=== PATIENT | male | born 1935 | race Caucasian/White ===

== ENCOUNTER → 2016-10-28 | Outpatient (CLI) | payer BC ==
[~2016-10-28] MED LIST: ABL/15 PO; CGN1 PO; CLON1TAB3 PO; DONE1TAB11 PO; FRRS300 PO; PARO1TAB27 PO; [UNRECOGNIZED DRUG - OTHER] IM
--- NOTE | 2016-10-28 21:02 | ECHOCARDIOGRAM REPORT ---
*NOTICE TO RECEIVING CONSTITUTION PARTY AGENCY This information is strictly Confidential and protected under [place] law. [place] law prohibits you from making any further disclosure of this information unless further disclosure is expressly permitted by the written consent of the person to whom it pertains or is authorized by law. A general authorization for the release of medical or other information is not sufficient for this purpose. Hospital accepts no responsibility if the information is made available to any other person, INCLUDING THE PATIENT. Interpretation Summary * Name: BE CORTEZ Study Date: 10/28/2016 12:49 PM * HR: 62 * : 1935 (M/d/yyyy) Gender: Male Height: 75 in * Age: 81 yrs Ethnicity: [place] Weight: 240 lb * Ordering Physician: Doug Raman PA-C * Referring Physician: Doug Raman PA-C * Performed By: Maury Gilmna RCS * * Reason For Study: Lightheadedness, , Mitral Insufficiency * BSA: 2.4 m2 * Normal left ventricular systolic function. * Mild concentric left ventricular hypertrophy. * Class 1 left ventricular diastolic dysfunction. * Mild left and right ventricular dilatation. * Mild left atrial dilatation. * Severe calcific aortic stenosis. * Trace aortic regurgitation. * Trace pulmonic regurgitation. * Trace mitral regurgitation. * -- Conclusions -- * There is severe calcific aortic valve stenosis. Procedure Details * Left Ventricle The left ventricle is mildly dilated. There is mild concentric left ventricular hypertrophy. Ejection Fraction = 55-60%. A full diastolic examination was done with clinical findings of Class I diastolic dysfunction. Left ventricular systolic function is normal. The left ventricular wall motion is normal. * Right Ventricle The right ventricle is normal size. The right ventricular systolic function is mildly reduced. * Atria The left atrium is mildly dilated. Right atrial size is normal. No ASD detected; PFO is not assessed. * Mitral Valve There is mild mitral annular calcification. There is no mitral valve stenosis. There is trace mitral regurgitation. * Tricuspid Valve The tricuspid valve is not well visualized, but is grossly normal. There is no tricuspid stenosis. Significant tricuspid regurgitation is absent. * Aortic Valve On 2 D imaging the aortic valve is calcified and has marked decreased opening consistent with severe stenosis. The velocity across the valve was indequately sampled. There is severe calcific aortic valve stenosis. Trace aortic regurgitation. * Pulmonic Valve The pulmonic valve is not well visualized. The pulmonary valve is inadequately visualized, but the Doppler data is adequate for interpretation. There is no pulmonic valvular stenosis. Trace pulmonic valvular regurgitation. * Great Vessels The aortic root is normal size. * Pericardium/Pleural There is no pericardial effusion. * * MMode 2D Measurements and Calculations * IVSd 1.2 cm * * LVIDd 5.7 cm * LVIDs 4.0 cm * LVPWd 1.2 cm * * IVS/LVPW 0.97 * FS 29.6 % * EDV(Teich) 160.4 ml * ESV(Teich) 70.7 ml * EF(Teich) 55.9 % * * EDV(cubed) 185.7 ml * ESV(cubed) 64.8 ml * EF(cubed) 65.1 % * * LV mass(C)d 285.5 grams * LV mass(C)dI 120.4 grams/m\S\2 * * SV(Teich) 89.7 ml * SI(Teich) 37.8 ml/m\S\2 * SV(cubed) 120.9 ml * SI(cubed) 51.0 ml/m\S\2 * * Ao root diam 3.2 cm * Ao root area 7.8 cm\S\2 * LA dimension 4.1 cm * * LA/Ao 1.3 * LVOT diam 2.0 cm * LVOT area 3.0 cm\S\2 * * EDV(MOD-sp4) 147.0 ml * ESV(MOD-sp4) 67.3 ml * EF(MOD-sp4) 54.2 % * * EDV(MOD-sp2) 200.3 ml * ESV(MOD-sp2) 90.9 ml * EF(MOD-sp2) 54.6 % * * SV(MOD-sp4) 79.7 ml * SI(MOD-sp4) 33.6 ml/m\S\2 * * SV(MOD-sp2) 109.5 ml * SI(MOD-sp2) 46.2 ml/m\S\2 * * * Doppler Measurements and Calculations * MV E max luda 95.3 cm/sec * MV A max luda 113.0 cm/sec * * MV E/A 0.84 * * LV V1 max PG 5.4 mmHg * LV V1 mean PG 2.8 mmHg * * LV V1 max 116.4 cm/sec * LV V1 mean 77.9 cm/sec * LV V1 VTI 31.1 cm * * SV(LVOT) 94.2 ml * SI(LVOT) 39.7 ml/m\S\2 * * * * *
== END | disposition home or self-care (01) ==
LOC: C.CPL 12:01
PROVIDERS: ATTEND Physician Assistant
DX: R42 Dizziness and giddiness (principal); I34.0 Nonrheumatic mitral (valve) insufficiency; I35.0 Nonrheumatic aortic (valve) stenosis

== ENCOUNTER 2021-05-28 06:29 | Inpatient (IN) ==
[2021-05-28] MEDS ORDERED: ONDANSETRON INJ 2 MG/ML 2 ML VIAL IV STA (06:46)
[2021-05-28] MEDS ORDERED: SODIUM CHLORIDE 0.9% 1000ML 1,000 ML IV SCH ×2 (07:00→08:00)
[2021-05-28 07:06] LABS: Eosinophils # (auto) 0.02 K/uL (0-0.5); Eosinophils % (auto) 0.1 %; Hematocrit (blood only) 43.8 % (42-52); Hemoglobin 14.6 g/dL (14.0-18.0); Immature Granulocytes # (auto) 0.02 K/uL (0.00-0.02); Immature Granulocytes % (auto) 0.1 %; Lymphocytes # (auto) 0.36 K/uL (1.2-3.4); Lymphocytes % (auto) 2.1 %; Mean Corpuscular Hemoglobin 29.4 pg (25-34); Mean Corpuscular Hgb Conc 33.3 g/dL (32-36); Mean Corpuscular Volume 88.1 fL (80-100); Mean Platelet Volume 10.9 fL (7.4-10.4); Monocytes # (auto) 0.71 K/uL (0.11-0.59); Monocytes % (auto) 4.2 %; Neutrophils # (auto) 15.86 K/uL (1.4-6.5); Neutrophils % (auto) 93.5 %; Platelet Count 344 K/uL (130-400); RDW Coefficient of Variation 14.7 % (11.5-14.5); RDW Standard Deviation 47.1 fL (36.4-46.3); Red Blood Count 4.97 M/uL (4.7-6.1); White Blood Count 16.97 K/uL (4.8-10.8)
[2021-05-28 07:12] LABS: INR 1.2 (0.9-1.1); Partial Thromboplastin Ratio 1.1; Partial Thromboplastin Time 29.6 Seconds (21.0-31.0); Prothrombin Time 12.3 Seconds (9.0-12.0)
--- NOTE | 2021-05-28 07:17 | Emergency Department Note ---
History of Present Illness General Chief complaint: Vomiting Stated complaint: vomiting, weak Time Seen by Provider: 05/28/21 06:33 History of Present Illness Maximum Pain Intensity: 6 86-year-old male presents to the ED with a chief complaint of weakness, abdominal pain as well as vomiting saliva for the past day. The patient's baseline is rather diminished in general. He is unable to provide any history. History was obtained from his sister. His sister has been helping take care of him. The patient's sister states that he has become increasingly weak over the last few days. He generally needs help getting around at baseline. The sister reported that he had complained of some abdominal pains. When he is asked, he reports a little. The patient did eat and drink fluids yesterday according to the sister but she had to feed him. He does have some baseline tremors and has difficulty feeding himself fluids at baseline. He sister reports that anytime she would try to give him something orally in the last 24 hours, he would just spit it out Home Medications Medication Instructions Recorded Confirmed Type ferrous sulfate 325 mg (65 mg 325 mg PO QAM #0 10/15/08 05/28/21 History iron) tablet (iron) fluphenazine decanoate 25 mg/mL 25 mg IM MONTHLY #0 10/15/08 05/28/21 History injection solution paroxetine HCl 20 mg tablet 20 mg PO QAM #0 10/15/08 05/28/21 History aripiprazole 15 mg tablet (Abilify) 15 mg PO QAM #0 tab 08/29/13 05/28/21 History donepezil 5 mg tablet 5 mg PO HS #0 08/29/13 05/28/21 History atorvastatin 10 mg tablet 10 mg PO BID 01/05/18 05/28/21 History hydrochlorothiazide 12.5 mg capsule 12.5 mg PO QAM 01/05/18 05/28/21 History glycopyrrolate 1 mg tablet 1 mg PO BID 05/28/21 05/28/21 History lisinopril 40 mg tablet 40 mg PO QAM 05/28/21 05/28/21 History mirtazapine 15 mg tablet 7.5 mg PO HS 05/28/21 05/28/21 History sertraline 100 mg tablet 150 mg PO QAM 05/28/21 05/28/21 History valbenazine 40 mg capsule 40 mg PO QAM 05/28/21 05/28/21 History (Ingrezza) Allergies Allergy/AdvReac Type Severity Reaction Status Date / Time No Known Allergies Allergy Unknown NO Verified 05/28/21 07:58 Past Med/Surg History Medical History Colonic mass Colonic mass Colorectal cancer, stage III (~08/29/13) Hearing loss Laceration of scrotum Memory changes Social History Smoking Status: Unknown if ever smoked Preferred Language: Malay Communication Ability: Effective Visual Impairment: No Limitations Hearing Ability: Hard of Hearing Current Living Situation: Spouse Feels Safe at Home: Yes Review of Systems Unobtainable due to cognitive status Physical Exam Vital Signs Vital Signs - 24 hr 05/28/21 06:38 05/28/21 06:47 05/28/21 07:13 Temperature 36.6 C Temperature Source Oral Pulse Rate 92 H 94 H 92 H Pulse Rate from SpO2 Sensor 92 H Pulse Rhythm Regular Regular Pulse Strength Normal Respiratory Rate 20 22 14 Respiratory Effort / Characteristics Non-Labored Respiratory Depth Normal Respiratory Pattern Regular Blood Pressure 99/68 L 106/69 Blood Pressure Mean 78 81 Blood Pressure Position Lying Pulse Oximetry 92 91 92 Oxygen Delivery Method Nasal Cannula Room Air Room Air Oxygen Flow Rate 2 Sepsis Recent Fever Within 48 Hours No Sepsis New/Unexplained Change in Mental Status No Sepsis Action Taken by Nursing No Action Required Oxygen Flow Rate - Titration Pulse Oximetry Post Tiitration 05/28/21 07:35 05/28/21 07:42 05/28/21 08:00 Temperature Temperature Source Pulse Rate 94 H 95 H 93 H Pulse Rate from SpO2 Sensor 95 H 93 H Pulse Rhythm Pulse Strength Respiratory Rate 24 22 23 Respiratory Effort / Characteristics Respiratory Depth Respiratory Pattern Blood Pressure 103/67 Blood Pressure Mean 79 Blood Pressure Position Pulse Oximetry 87 L 93 Oxygen Delivery Method Room Air Nasal Cannula Oxygen Flow Rate 2 Sepsis Recent Fever Within 48 Hours Sepsis New/Unexplained Change in Mental Status Sepsis Action Taken by Nursing Oxygen Flow Rate - Titration 2 Pulse Oximetry Post Tiitration 93 CONSTITUTIONAL/VITAL SIGNS: Reviewed / noted above. GENERAL: Non-toxic in appearance. INTEGUMENTARY: Warm, dry, and [place]. HEAD: Normocephalic. EYES: without scleral icterus or trauma. ENT/OROPHARYNX: clear and dry. RESPIRATORY: Clear to auscultation bilaterally. No increased work of breathing. CARDIOVASCULAR: Regular rate and rhythm. Systolic ejection murmur GI/ABDOMEN: Soft and mildly tender.. No organomegaly or pulsatile mass. EXTREMITIES: Warm and well perfused. BACK: No CVA tenderness. NEUROLOGICAL: Significant global generalized weakness. Tries to talk but is incomprehensible. PSYCHIATRIC: normal affect. MUSCULOSKELETAL: Normally developed with good muscle tone. TRIAGE NURSING DOCUMENTATION REVIEWED. Course Administered Medications Discontinued Medications Sodium Chloride (Nss 1000ml) 1,000 mls @ 999 mls/hr IV .Q1H1M LETHA Stop: 05/28/21 07:48 Last Infusion: 05/28/21 08:06 Dose: 0 mls/hr Documented by: [id number] Infusion: 05/28/21 08:00 Dose: 0 mls/hr Documented by: [id number] Admin: 05/28/21 07:40 Dose: 999 mls/hr Documented by: [id number] Sodium Chloride (Nss 1000ml) 1,000 mls @ 999 mls/hr IV .Q1H1M LETHA Stop: 05/28/21 08:59 Last Infusion: 05/28/21 08:07 Dose: 0 mls/hr Documented by: [id number] Infusion: 05/28/21 08:00 Dose: 0 mls/hr Documented by: [id number] Admin: 05/28/21 07:40 Dose: 999 mls/hr Documented by: [id number] Ondansetron HCl (Ondansetron Inj 2 Mg/Ml 2 Ml Vial) 4 mg IV NOW [facility] Stop: 05/28/21 06:47 Last Admin: 05/28/21 07:45 Dose: 4 mg Documented by: [id number] Medical Decision Making Differential Diagnosis Differential includes acute coronary syndrome, myocardial infarction, CVA, TIA, anemia, infection, pneumonia, UTI, pyelonephritis, poor nutrition, dehydration, electrolyte disturbance,hypoglycemia. Medical Records Attestation: I reviewed the patient's medical records. Home Medications Current Medication List: was personally reviewed by me Laboratory Data Attestation: I reviewed the patient's lab results. Result diagrams: 05/28/21 06:46 05/28/21 06:46 Lab Results 04/08/22 04/08/22 04/08/22 Range/Units 06:46 06:46 06:46 WBC 16.97 H (4.8-10.8) K/uL RBC 4.97 (4.7-6.1) M/uL Hgb 14.6 (14.0-18.0) g/dL Hct 43.8 (42-52) % MCV 88.1 (80-100) fL MCH 29.4 (25-34) pg MCHC 33.3 (32-36) g/dL RDW Std Deviation 47.1 H (36.4-46.3) fL RDW Coeff of Rose 14.7 H (11.5-14.5) % Plt Count 344 (130-400) K/uL MPV 10.9 H (7.4-10.4) fL Immature Gran % (Auto) 0.1 % Neut % (Auto) 93.5 % Lymph % (Auto) 2.1 % [place] % (Auto) 4.2 % Eos % (Auto) 0.1 % Baso % (Auto) 0.0 % Neut # (Auto) 15.86 H (1.4-6.5) K/uL Lymph # (Auto) 0.36 L (1.2-3.4) K/uL [place] # (Auto) 0.71 H (0.11-0.59) K/uL Eos # (Auto) 0.02 (0-0.5) K/uL Baso # (Auto) 0.00 (0-0.2) K/uL Immature Gran # (Auto) 0.02 (0.00-0.02) K/uL PT (9.0-12.0) Seconds INR (0.9-1.1) APTT (21.0-31.0) Seconds PTT Ratio Sodium 140 (136-145) mmol/L Potassium 4.5 (3.5-5.1) mmol/L Chloride 105 (98-107) mmol/L Carbon Dioxide 20 L (21-32) mmol/L Anion Gap 15 H (3-11) BUN 40 H (6-23) mg/dl Creatinine 1.75 H (0.6-1.4) mg/dl Est Cr Clr Drug Dosing Not Reportable Est GFR ( Amer) 40.5 ml/min Est GFR (Non-Af Amer) 35.0 ml/min BUN/Creatinine Ratio 22.9 H (10-20) Glucose 163 H (70-99(Fasting)) mg/dl Lactate (0.4-2.0) mmol/L Calcium 9.1 (8.5-10.1) mg/dl Magnesium 2.2 (1.7-2.4) mg/dl Total Bilirubin 1.0 (0.2-1.0) mg/dl AST 36 (13-39) U/L ALT 14 (7-52) U/L Alkaline Phosphatase 75 (34-104) U/L Troponin I 3.54 H* (0-0.04) ng/ml Total Protein 6.8 (6.0-8.3) gm/dl Albumin 4.0 (3.4-5.0) gm/dl Globulin 2.8 (2.5-4.0) gm/dl Albumin/Globulin Ratio 1.4 (0.9-2) Procalcitonin Cancelled SARS-CoV-2 (PCR) (Negative) Influenza Type A (PCR) (Neg) Influenza Type B (PCR) (Neg) RSV (RT-PCR) (Neg) 05/28/21 05/28/21 05/28/21 Range/Units 06:46 06:46 07:44 WBC (4.8-10.8) K/uL RBC (4.7-6.1) M/uL Hgb (14.0-18.0) g/dL Hct (42-52) % MCV (80-100) fL MCH (25-34) pg MCHC (32-36) g/dL RDW Std Deviation (36.4-46.3) fL RDW Coeff of Rose (11.5-14.5) % Plt Count (130-400) K/uL MPV (7.4-10.4) fL Immature Gran % (Auto) % Neut % (Auto) % Lymph % (Auto) % [place] % (Auto) % Eos % (Auto) % Baso % (Auto) % Neut # (Auto) (1.4-6.5) K/uL Lymph # (Auto) (1.2-3.4) K/uL [place] # (Auto) (0.11-0.59) K/uL Eos # (Auto) (0-0.5) K/uL Baso # (Auto) (0-0.2) K/uL Immature Gran # (Auto) (0.00-0.02) K/uL PT 12.3 H (9.0-12.0) Seconds INR 1.2 H (0.9-1.1) APTT 29.6 (21.0-31.0) Seconds PTT Ratio 1.1 Sodium (136-145) mmol/L Potassium (3.5-5.1) mmol/L Chloride (98-107) mmol/L Carbon Dioxide (21-32) mmol/L Anion Gap (3-11) BUN (6-23) mg/dl Creatinine (0.6-1.4) mg/dl Est Cr Clr Drug Dosing Est GFR ( Amer) ml/min Est GFR (Non-Af Amer) ml/min BUN/Creatinine Ratio (10-20) Glucose (70-99(Fasting)) mg/dl Lactate 3.4 H* (0.4-2.0) mmol/L Calcium (8.5-10.1) mg/dl Magnesium (1.7-2.4) mg/dl Total Bilirubin (0.2-1.0) mg/dl AST (13-39) U/L ALT (7-52) U/L Alkaline Phosphatase (34-104) U/L Troponin I (0-0.04) ng/ml Total Protein (6.0-8.3) gm/dl Albumin (3.4-5.0) gm/dl Globulin (2.5-4.0) gm/dl Albumin/Globulin Ratio (0.9-2) Procalcitonin SARS-CoV-2 (PCR) NEGATIVE (Negative) Influenza Type A (PCR) Negative (Neg) Influenza Type B (PCR) Negative (Neg) RSV (RT-PCR) Negative (Neg) 05/28/21 Range/Units 08:33 WBC (4.8-10.8) K/uL RBC (4.7-6.1) M/uL Hgb (14.0-18.0) g/dL Hct (42-52) % MCV (80-100) fL MCH (25-34) pg MCHC (32-36) g/dL RDW Std Deviation (36.4-46.3) fL RDW Coeff of Rose (11.5-14.5) % Plt Count (130-400) K/uL MPV (7.4-10.4) fL Immature Gran % (Auto) % Neut % (Auto) % Lymph % (Auto) % [place] % (Auto) % Eos % (Auto) % Baso % (Auto) % Neut # (Auto) (1.4-6.5) K/uL Lymph # (Auto) (1.2-3.4) K/uL [place] # (Auto) (0.11-0.59) K/uL Eos # (Auto) (0-0.5) K/uL Baso # (Auto) (0-0.2) K/uL Immature Gran # (Auto) (0.00-0.02) K/uL PT (9.0-12.0) Seconds INR (0.9-1.1) APTT (21.0-31.0) Seconds PTT Ratio Sodium (136-145) mmol/L Potassium (3.5-5.1) mmol/L Chloride (98-107) mmol/L Carbon Dioxide (21-32) mmol/L Anion Gap (3-11) BUN (6-23) mg/dl Creatinine (0.6-1.4) mg/dl Est Cr Clr Drug Dosing Est GFR ( Amer) ml/min Est GFR (Non-Af Amer) ml/min BUN/Creatinine Ratio (10-20) Glucose (70-99(Fasting)) mg/dl Lactate 2.6 H* (0.4-2.0) mmol/L Calcium (8.5-10.1) mg/dl Magnesium (1.7-2.4) mg/dl Total Bilirubin (0.2-1.0) mg/dl AST (13-39) U/L ALT (7-52) U/L Alkaline Phosphatase (34-104) U/L Troponin I (0-0.04) ng/ml Total Protein (6.0-8.3) gm/dl Albumin (3.4-5.0) gm/dl Globulin (2.5-4.0) gm/dl Albumin/Globulin Ratio (0.9-2) Procalcitonin SARS-CoV-2 (PCR) (Negative) Influenza Type A (PCR) (Neg) Influenza Type B (PCR) (Neg) RSV (RT-PCR) (Neg) Imaging Data Radiologist's Impression: Chest X-Ray 05/28/21 06:47 XR chest 1V portable CLINICAL HISTORY: Sepsis. COMPARISON STUDY: Chest CT August 29, 2013. Chest radiograph September 10, 2013. FINDINGS: There is no pneumothorax. Small bilateral pleural effusions are noted. Moderate interstitial pulmonary edema is noted. Superimposed airspace opacities favor alveolar edema. Cardiac size is at the upper limits of normal. IMPRESSION: Moderate pulmonary edema with small bilateral pleural effusions. Radiographic follow-up is recommended to ensure resolution. ACT 112: Negative or not required by law. Electronically signed by: Hardik Tran M.D. 05/28/2021 7:45 AM Abdomen/Pelvis CT 05/28/21 06:49 CT abd pelvis wo con CLINICAL HISTORY: Abdominal pain. Difficulty swallowing. Constipation. Reported vomiting. Additional reported history of colorectal carcinoma COMPARISON STUDY: 10/03/2014 CT DOSE: 562.16 mGy.cm TECHNIQUE: Standard CT of the Abdomen and Pelvis was performed without IV cont rast. The patient did not receive oral contrast. A dose lowering technique was utilized adhering to the principles of ALARA. FINDINGS: Lung base: There is breathing motion artifact. Comments interstitial markings is also seen. There are moderate-sized bilateral pleural effusions, right greater than left with compressive atelectasis at both lung bases. The heart size is mildly enlarged. There is extensive coronary artery calcification and valvular calcification. The presence of valve replacements cannot be excluded. There is a small pericardial effusion. Abdominal cavity: There is no evidence for abdominal mass, adenopathy or ascites. Liver: The liver is homogeneous in attenuation on these limited noncontrast images.. Spleen: The spleen is homogeneous in attenuation on these limited noncontrast images. Pancreas: The pancreas is homogeneous in attenuation on these limited noncontrast images. Gall Bladder: The gallbladder is again distended with cholelithiasis. There is no CT evidence for acute cholecystitis. Adrenal glands: The adrenal glands are normal in size and attenuation on these limited noncontrast images. Kidneys: The kidneys are homogeneous in attenuation on these limited noncontrast images. There is no evidence for gross renal mass, calyceal calculus or hydronephrosis bilaterally. There is a 2 mm right renal parenchymal calcification. Bowel: The patient is again status post right hemicolectomy with patent a nastomosis. There is mild to moderate fecal impaction of the rectosigmoid colon. There is no obstruction of the more proximal colon with only mild fecal stasis present. The small bowel loops are normally placed within the abdomen and pelvis without evidence for dilatation or obstruction. There is evidence for sigmoid diverticulosis without evidence for diverticulitis. There are no inflammatory changes present. There is no evidence for free air. Bladder: There is no evidence for focal bladder wall thickening, calculus or diverticulum. There is mild diffuse thickening of the bladder wall which can be seen with chronic bladder outlet obstruction. : There is no evidence for pelvic mass or adenopathy. The prostate is mildly enlarged. Vasculature: There is no evidence for focal aneurysmal dilatation of the abdominal aorta. There is extensive atherosclerotic calcification. 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 Osseous structures: There is no acute osseous pathology. Mild degenerative changes are seen within the spine. IMPRESSION: 1. Mild to moderate fecal impaction without evidence for obstruction. There is only mild associated fecal stasis more proximally within the colon. 2. There is again cholelithiasis with no CT evidence for acute cholecystitis. 3. Moderate sized bilateral pleural effusions, right greater than left with compressive atelectasis at the right lung base. 4. Cardiomegaly with extensive coronary artery calcification and valvular calcification. 5. Small pericardial effusion. 6. Additional nonacute findings are delineated above. ACT 112: Negative or not required by law. Electronically signed by: Robin Tijerina M.D. 05/28/2021 7:54 AM ECG Data Attestation: I personally reviewed and interpreted this ECG as follows: Additional Comments: Twelve-lead EKG: Per my interpretation shows a sinus rhythm at a rate of 92 with a first-degree AV block. Right bundle branch block. Left anterior fascicular block. No ST elevation. No PVCs. MDM Narrative Patient presents with generalized weakness, vomiting and some abdominal pain as detailed above. Poor historian. Significant generalized weakness on exam. Mouth appears dry. Blood pressure 99/68. Heart rate is 94. Afebrile. Saturations 91% on room air. The patient's EKG shows a sinus rhythm at a rate of 92. White blood cell count is elevated at 16.9. BUN is 40 and creatinine is 1.75. Lactic acid is 3.4. Glucose is 163. Troponin is elevated at 3. 5. Chest x-ray reveals findings suggesting pulmonary edema. CT scan of the abdomen pelvis reveals moderate fecal impaction otherwise moderate bilateral pleural effusions. The patient did require a small amount of oxygen, 2 L for desaturations into the 88 to 89% on room air. He was initially given some flu ids. He was ordered 2 L but only received 100 cc because of the chest x-ray showing pulmonary edema. The patient was not given any Lasix for this because of the blood pressure being low. He was given some IV Zofran for his symptoms. I did speak with the hospitalist, who will see the patient for further inpatient evaluation and care. Because of the patient's vomiting, he was not given aspirin p.o. as he seems to be too weak to swallow. He was given rectal aspirin Impression & Plan Generalized weakness, Elevated troponin, Nausea & vomiting, CHF (congestive heart failure), Acute renal injury, Acute hyperglycemia Discharge Plan Visit Data Chief Complaint: Vomiting Stated Complaint: vomiting, weak ED Provider: Elbert Marcelino Discharge Problem: Generalized weakness, Elevated troponin, Nausea & vomiting, CHF (congestive heart failure), Acute renal injury, Acute hyperglycemia Patient Disposition: Being Evaluated by Hospitalist Forms Stand Alone Forms: My [facility] Prescriptions Prescriptions: No Action fluphenazine decanoate 25 mg/mL Solution 25 mg IM MONTHLY Qty: 0 RF: 0 paroxetine HCl 20 mg Tablet 20 mg PO QAM Qty: 0 RF: 0 ferrous sulfate [iron] 325 mg (65 mg iron) Tablet 325 mg PO QAM Qty: 0 RF: 0 donepezil 5 mg Tablet 5 mg PO HS Qty: 0 RF: 0 aripiprazole [Abilify] 15 mg Tablet 15 mg PO QAM Qty: 0 RF: 0 atorvastatin 10 mg tablet 10 mg PO BID RF: 0 hydrochlorothiazide 12.5 mg capsule 12.5 mg PO QAM RF: 0 glycopyrrolate 1 mg tablet 1 mg PO BID RF: 0 sertraline 100 mg tablet 150 mg PO QAM RF: 0 mirtazapine 15 mg tablet 7.5 mg PO HS RF: 0 lisinopril 40 mg tablet 40 mg PO QAM RF: 0 Ingrezza 40 mg capsule 40 mg PO QAM RF: 0 Referrals Referrals: Ivanna Sam DO [Primary Care Provider] -
[2021-05-28 07:22] LABS: Alanine Aminotransferase 14 U/L (7-52); Albumin Globulin Ratio 1.4 (0.9-2); Alkaline Phosphatase 75 U/L (34-104); Anion Gap 15 (3-11); Aspartate Aminotransferase 36 U/L (13-39); BUN Creatinine Ratio 22.9 (10-20); Blood Urea Nitrogen 40 mg/dl (6-23); Calcium 9.1 mg/dl (8.5-10.1); Carbon Dioxide 20 mmol/L (21-32); Chloride 105 mmol/L (98-107); Est GFR (African American) 40.5 ml/min; Globulin 2.8 gm/dl (2.5-4.0); Glucose 163 mg/dl (70-99(Fasting)); Magnesium 2.2 mg/dl (1.7-2.4); Potassium 4.5 mmol/L (3.5-5.1); Sodium 140 mmol/L (136-145); Total Protein 6.8 gm/dl (6.0-8.3)
[2021-05-28 07:29] LABS: Troponin I 3.54 ng/ml (0-0.04)
--- NOTE | 2021-05-28 07:46 | XRay Report ---
XR chest 1V portable CLINICAL HISTORY: Sepsis. COMPARISON STUDY: Chest CT August 29, 2013. Chest radiograph September 10, 2013. FINDINGS: There is no pneumothorax. Small bilateral pleural effusions are noted. Moderate interstitia l pulmonary edema is noted. Superimposed airspace opacities favor alveolar edema. Cardiac size is at the upper limits of normal. IMPRESSION: Moderate pulmonary edema with small bilateral pleural effusions. Radiographic follow-up is recommended to ensure resolution. ACT 112: Negative or not required by law. Electronically signed by: Hardik Tran M.D. 05/28/2021 7:45 AM
--- NOTE | 2021-05-28 07:55 | CT Scan Report ---
CT abd pelvis wo con CLINICAL HISTORY: Abdominal pain. Difficulty swallowing. Constipation. Reported vomiting. Additional reported history of colorectal carcinoma COMPARISON STUDY: 10/03/2014 CT DOSE: 562.16 mGy.cm TECHNIQUE: Standard CT of the Abdomen and Pelvis was performed without IV contrast. The patient did not receive oral contrast. A dose lowering technique was utilized adhering to the principles of COLTON Batista FINDINGS: Lung base: There is breathing motion artifact. Comments interstitial markings is also seen. There are moderate-sized bilateral pleural effusions, right greater than left with compressive atelectasis at both lung bases. The heart size is mildly enlarged. There is extensive coronary artery calcification and valvular calcification. The presence of valve replacements cannot be excluded. There is a small p ericardial effusion. Abdominal cavity: There is no evidence for abdominal mass, adenopathy or ascites. Liver: The liver is homogeneous in attenuation on these limited noncontrast images.. Spleen: The spleen is homogeneous in attenuation on these limited noncontrast images. Pancreas: The pancreas is homogeneous in attenuation on these limited noncontrast images. Gall Bladder: The gallbladder is again distended with cholelithiasis. There is no CT evidence for acu te cholecystitis. Adrenal glands: The adrenal glands are normal in size and attenuation on these limited noncontrast im ages. Kidneys: The kidneys are homogeneous in attenuation on these limited noncontrast images. There is no evidence for gross renal mass, calyceal calculus or hydronephrosis bilaterally. There is a 2 mm right renal parenchymal calcification. Bowel: The patient is again status post right hemicolectomy with patent anastomosis. There is mild to moderate fecal impaction of the rectosigmoid colon. There is no obstruction of the more proximal col on with only mild fecal stasis present. The small bowel loops are normally placed within the abdomen and pelvis without evidence for dilatation or obstruction. There is evidence for sigmoid diverticulos is without evidence for diverticulitis. There are no inflammatory changes present. There is no eviden ce for free air. Bladder: There is no evidence for focal bladder wall thickening, calculus or diverticulum. There is m ild diffuse thickening of the bladder wall which can be seen with chronic bladder outlet obstruction. : There is no evidence for pelvic mass or adenopathy. The prostate is mildly enlarged. Vasculature: There is no evidence for focal aneurysmal dilatation of the abdominal aorta. There is ex tensive atherosclerotic calcification. There is particularly seen involving the left femoral artery w hich is almost completely occluded. Osseous structures: There is no acute osseous pathology. Mild degenerative changes are seen within th e spine. IMPRESSION: 1. Mild to moderate fecal impaction without evidence for obstruction. There is only mild associated f ecal stasis more proximally within the colon. 2. There is again cholelithiasis with no CT evidence for acute cholecystitis. 3. Moderate sized bilateral pleural effusions, right greater than left with compressive atelectasis a t the right lung base. 4. Cardiomegaly with extensive coronary artery calcification and valvular calcification. 5. Small pericardial effusion. 6. Additional nonacute findings are delineated above. ACT 112: Negative or not required by law. Electronically signed by: Robin Tijerina M.D. 05/28/2021 7:54 AM
[2021-05-28 08:16] LABS: Appearance Urine Clear (Clear); Bilirubin Urine Negative (Negative); Blood Urine Negative (Negative); Color Urine Dark Yellow; Glucose Urine UA Negative (Negative); Ketones Urine Trace (Negative); Leukocyte Esterase Urine 1+ (Negative); Nitrite Urine Positive (Negative); Protein Urine Negative (Negative); RBC Urine Automated 0-4 /hpf (0-4); Urobilinogen Urine Negative (Negative)
[2021-05-28 08:42] LABS: Influenza A virus by PCR Negative (Neg); Influenza B virus by PCR Negative (Neg); RSV by PCR Negative (Neg); SARS CoV2 RNA(COVID-19) InHosp NEGATIVE (Negative)
[2021-05-28] MEDS ORDERED: ASPIRIN 300 MG SUPP PR ONE (09:12)
[2021-05-28 09:21] LABS: Bacteria Urine Automated 1+ (Negative)
[2021-05-28] MEDS: SODIUM CHLORIDE 0.9% 1000ML 1,000 ML IV SCH ×2 (09:30→23:06)
[2021-05-28] MEDS ORDERED: cefTRIAXone SODIUM 1,000 MG/50 ML BAG IV STA (09:34)
--- NOTE | 2021-05-28 10:35 | History & Physical Report ---
Date of Service May 28, 2021 Assessment & Plan (1) Severe sepsis: (2) UTI (urinary tract infection): (3) Acute kidney injury superimposed on CKD: (4) Elevated troponin: (5) Generalized weakness: (6) Fecal impaction: (7) Nausea & vomiting: (8) NSTEMI (non-ST elevated myocardial infarction): Plan: This is a 86-year-old elderly male who has significant past medical history of T2DM diet-controlled, schizophrenia, HTN, HLD, history of colon cancer status post right hemicolectomy who presents to ED secondary to abdominal pain and nausea and vomiting x1 day. Patient meets severe sepsis criteria per current CMS guidelines secondary to leukocytosis, tachycardia, lactic acidosis and evidence of organ dysfunction Urine and blood cultures obtained IV Rocephin administered IV fluid was initiated; however not bolus secondary to hypoxia and evidence of pulmonary edema/moderate bilateral pleural effusions Source: Urine Severe sepsis UTI Generalized weakness Admit to PCU Broad-spectrum antibiotics with IV Zosyn Await urine and blood cultures MRSA screen Trend lactic acid, continue IV fluid, adjust as necessary N.p.o. for now until patient more alert and awake Mouth care holding all medications due to inability to take po NSTEMI Elevated troponin, BNP Patient denies chest pain, EKG with anterior T wave inversions, no comparisons Admitting Trop 3.54 with a BNP of greater than 4700 Obtain echocardiogram Discussed with cardiology, likely in setting of sepsis, likely not acute ACS Continue to trend troponin, will hold on IV heparin for now Acute on chronic CKD stage III Baseline creatinine 1.3, BUN/creatinine 40 and 1.75 Continue hydration, avoid nephrotoxic agents Fecal impaction Start with biscodyl suppository T2DM, diet controlled unknown a1c novolog per protocol HTN hold lisinopril, HCTZ Schizophrenia Hold Abilify, glycopyrrolate, mirtazapine, paroxetine, sertraline and Ingrezza Resume if able Dementia On Aricept as outpatient DVT prophylaxis SQ Heparin Dispo: PCU, discussion had with sister at bedside regarding critical nature of patient and possible poor prognosis, she wishes for hospice to be involved and to take him home if symptoms do not improve within 2448 hrs. DNR/DNI PCP: Ivanna Sam Pt was seen and examined in collaboration with Dr. Allen, please see addendum History of Present Illness Chief Complaint: Abd pain, N/V. Primary Care Provider: Ivanna Sam DO This is a 86-year-old elderly male who has significant past medical history of T2DM diet-controlled, schizophrenia, HTN, HLD, history of colon cancer status post right hemicolectomy who presents to ED secondary to abdominal pain and nausea and vomiting x1 day. His sister is at bedside. He is a very poor historian. Sister does not provide significant history as well. Apparently patient's brother approximately 2 weeks ago and according to sister he has been becoming increasingly weak since. Typically he lives at home alone, but sister has been staying with him. He is usually ambulatory with a walker and otherwise pretty active. Over the past 2 days he has become increasingly weak, decreased appetite, complaining of lower abdominal discomfort nausea and spitting up clear mucus according to sister. He denies any fever, chills, sweats, lightheadedness, dizziness, chest pain, shortness of breath, cough, hematemesis, hemoptysis, melena or hematochezia. According to sister he has had difficulty moving bowels the last 2 days. In ED patient met sepsis criteria secondary to leukocytosis, tachycardia, lactic acidosis and evidence of UTI. He also had mild SAKSHI with creatinine 1.75 and elevated troponin at 3.54. CT abdomen pelvis revealed mild to moderate fecal impaction without evidence of obstruction. Also revealed moderate sized bilateral pleural effusions right greater than left with compressive atelectasis at right lung base. Small pericardial effusion was noted. Chest x-ray revealed moderate pulmonary edema. In ED he was started on gentle IV fluid and he also received 300 mg aspirin per rectum. Allergies Allergy/AdvReac Type Severity Reaction Status Date / Time No Known Allergies Allergy Unknown NO Verified 05/28/21 07:58 Home Medications Medication Instructions Recorded Confirmed Type ferrous sulfate 325 mg (65 mg 325 mg PO QAM #0 10/15/08 05/28/21 History iron) tablet (iron) fluphenazine decanoate 25 mg/mL 25 mg IM MONTHLY #0 10/15/08 05/28/21 History injection solution paroxetine HCl 20 mg tablet 20 mg PO QAM #0 10/15/08 05/28/21 History aripiprazole 15 mg tablet (Abilify) 15 mg PO QAM #0 tab 08/29/13 05/28/21 History donepezil 5 mg tablet 5 mg PO HS #0 08/29/13 05/28/21 History atorvastatin 10 mg tablet 10 mg PO BID 01/05/18 05/28/21 History hydrochlorothiazide 12.5 mg capsule 12.5 mg PO QAM 01/05/18 05/28/21 History glycopyrrolate 1 mg tablet 1 mg PO BID 05/28/21 05/28/21 History lisinopril 40 mg tablet 40 mg PO QAM 05/28/21 05/28/21 History mirtazapine 15 mg tablet 7.5 mg PO HS 05/28/21 05/28/21 History sertraline 100 mg tablet 150 mg PO QAM 05/28/21 05/28/21 History valbenazine 40 mg capsule 40 mg PO QAM 05/28/21 05/28/21 History (Ingrezza) Past Med/Surg History Medical History Acute kidney injury superimposed on CKD Colonic mass Colonic mass Colorectal cancer, stage III (~08/29/13) Hearing loss HLD (hyperlipidemia) HTN (hypertension) Laceration of scrotum Memory changes Schizophrenia T2DM (type 2 diabetes mellitus) Surgical History History of hemicolectomy Family History Mother , 89 CHF (congestive heart failure) Social History Smoking Status: Never smoker Second Hand Exposure: No; Do You Dip or Chew Tobacco: No; Tobacco Cessation Education Requested by Patient: No Hx Alcohol Use: No Hx Substance Use: No Preferred Language: Trinidadian Communication Ability: Impaired Communication Ability Comment: hearing/dementia Visual Impairment: No Limitations Hearing Ability: Hard of Hearing Pulling Unit Floorhand Required: No Beliefs That Will Affect Care: None marital status: / Current Living Situation: Family Current Living Situation Comment: Alone with sisters help Other Information That Helps Us Care for You: No Feels Safe at Home: Yes Safety Concerns: Feels Safe At This Time Assistive Devices: Walker and Wheelchair Review of Systems Review of Systems: All systems reviewed & are unremarkable except as noted in HPI & below Physical Exam Physical Exam: Constitutional: Tall, cachectic, elderly, male, critically ill in appearance vitals as above, NAD, sitting up in bed, answers questions, but difficult to understand Head: Normocephalic, Atraumatic Eyes: PERRL, conjunctivae normal, anicteric sclerae ENMT: external ear and nose normal, oropharynx normal, dry mucous membranes Neck: trachea midline, no thyromegaly normal visual inspection Respiratory: normal respiratory effort, lungs clear to auscultation, no wheeze, rales, rhonchi. Normal insp/exp effort, no accessory muscle use Cardiovascular: RRR, harsh 3/6 NEO noted RUSB, no edema Vessels: no JVD or carotid bruit Chest: normal inspection of chest Abdomen: normal bowel sounds, soft, nontender, no hepatosplenomegaly Musculoskeletal: no cyanosis or clubbing, extremities motor strength 5/5 Skin: no rashes, warm and dry mild turgor Neurologic: PERRL, EOMI, accommodation nl, no face palsy, no dysarthria CN's II-XI intact bilaterally and moves all extremities Psychiatric: A+Ox3 basics only, euthymic affect Lymphatic: no cervical or axillary lymphadenopathy : jn urine Results & Data Results & Data ([facility]) Vital Signs (Past 12 Hours) Vital Signs Temp Pulse Resp BP Pulse Ox 05/28/21 10:00 95 H 24 104/69 92 05/28/21 09:30 95 H 20 95/65 L 93 05/28/21 09:00 92 H 21 90/65 L 93 05/28/21 08:30 93 H 20 99/63 L 92 05/28/21 08:00 93 H 23 93 05/28/21 07:42 95 H 22 103/67 87 L 05/28/21 07:35 94 H 24 05/28/21 07:13 92 H 14 106/69 92 05/28/21 06:47 94 H 22 91 05/28/21 06:38 36.6 C 92 H 20 99/68 L 92 Diagnostic Findings Chest X-Ray 05/28/21 06:47 XR chest 1V portable CLINICAL HISTORY: Sepsis. COMPARISON STUDY: Chest CT August 29, 2013. Chest radiograph September 10, 2013. FINDINGS: There is no pneumothorax. Small bilateral pleural effusions are noted. Moderate interstitial pulmonary edema is noted. Superimposed airspace opacities favor alveolar edema. Cardiac size is at the upper limits of normal. IMPRESSION: Moderate pulmonary edema with small bilateral pleural effusions. Radiographic follow-up is recommended to ensure resolution. ACT 112: Negative or not required by law. Electronically signed by: Hardik Tran M.D. 05/28/2021 7:45 AM Abdomen/Pelvis CT 05/28/21 06:49 CT abd pelvis wo con CLINICAL HISTORY: Abdominal pain. Difficulty swallowing. Constipation. Reported vomiting. Additional reported history of colorectal carcinoma COMPARISON STUDY: 10/03/2014 CT DOSE: 562.16 mGy.cm TECHNIQUE: Standard CT of the Abdomen and Pelvis was performed without IV contrast. The patient did not receive oral contrast. A dose lowering technique was utilized adhering to the principles of ALARA. FINDINGS: Lung base: There is breathing motion artifact. Comments interstitial markings is also seen. There are moderate-sized bilateral pleural effusions, right greater than left with compressive atelectasis at both lung bases. The heart size is mildly enlarged. There is extensive coronary artery calcification and valvular calcification. The presence of valve replacements cannot be excluded. There is a small pericardial effusion. Abdominal cavity: There is no evidence for abdominal mass, adenopathy or ascites. Liver: The liver is homogeneous in attenuation on these limited noncontrast images.. Spleen: The spleen is homogeneous in attenuation on these limited noncontrast images. Pancreas: The pancreas is homogeneous in attenuation on these limited noncontrast images. Gall Bladder: The gallbladder is again distended with cholelithiasis. There is no CT evidence for acute cholecystitis. Adrenal glands: The adrenal glands are normal in size and attenuation on these limited noncontrast images. Kidneys: The kidneys are homogeneous in attenuation on these limited noncontrast images. There is no evidence for gross renal mass, calyceal calculus or hydronephrosis bilaterally. There is a 2 mm right renal parenchymal calcification. Bowel: The patient is again status post right hemicolectomy with patent anastomosis. There is mild to moderate fecal impaction of the rectosigmoid colon. There is no obstruction of the more proximal colon with only mild fecal stasis present. The small bowel loops are normally placed within the abdomen and pelvis without evidence for dilatation or obstruction. There is evidence for sigmoid diverticulosis without evidence for diverticulitis. There are no inflam matory changes present. There is no evidence for free air. Bladder: There is no evidence for focal bladder wall thickening, calculus or diverticulum. There is mild diffuse thickening of the bladder wall which can be seen with chronic bladder outlet obstruction. : There is no evidence for pelvic mass or adenopathy. The prostate is mildly enlarged. Vasculature: There is no evidence for focal aneurysmal dilatation of the abdominal aorta. There is extensive atherosclerotic calcification. 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 Osseous structures: There is no acute osseous pathology. Mild degenerative changes are seen within the spine. IMPRESSION: 1. Mild to moderate fecal impaction without evidence for obstruction. There is only mild associated fecal stasis more proximally within the colon. 2. There is again cholelithiasis with no CT evidence for acute cholecystitis. 3. Moderate sized bilateral pleural effusions, right greater than left with compressive atelectasis at the right lung base. 4. Cardiomegaly with extensive coronary artery calcification and valvular calcification. 5. Small pericardial effusion. 6. Additional nonacute findings are delineated above. ACT 112: Negative or not required by law. Electronically signed by: Robin Tijerina M.D. 05/28/2021 7:54 AM Medications Administered Current Inpatient Medications Sodium Chloride (Nss 1000ml) 1,000 mls @ 50 mls/hr IV .Q20H LETHA Stop: 05/30/21 01:14 Last Admin: 05/28/21 09:30 Dose: 50 mls/hr Documented by: ECG Rate (beats per minute): 92 Rhythm: normal sinus Findings: + 1st degree AV block, + RBBB and + prolonged QT COVID-19 Results Results COVID-19 Adm Lab Results: RBC 4.97 M/uL (4.7-6.1) 05/28/21 WBC 16.97 K/uL (4.8-10.8) H 05/28/21 Hgb 14.6 g/dL (14.0-18.0) 05/28/21 Hct 43.8 % (42-52) 05/28/21 Plt Count 344 K/uL (130-400) 05/28/21 Neutrophils (%) (Auto) 93.5 % 05/28/21 Lymphocytes (%) (Auto) 2.1 % 05/28/21 Monocytes # (Auto) 0.71 K/uL (0.11-0.59) H 05/28/21 Eosinophils # (Auto) 0.02 K/uL (0-0.5) 05/28/21 Immature Granulocyte % (Auto) 0.1 % 05/28/21 Neutrophils # (Auto) 15.86 K/uL (1.4-6.5) H 05/28/21 Lymphocytes # (Auto) 0.36 K/uL (1.2-3.4) L 05/28/21 Monocytes # (Auto) 0.71 K/uL (0.11-0.59) H 05/28/21 Eosinophils # (Auto) 0.02 K/uL (0-0.5) 05/28/21 Basophils # (Auto) 0.00 K/uL (0-0.2) 05/28/21 Immature Granulocyte # (Auto) 0.02 K/uL (0.00-0.02) 05/28/21 Na 140 mmol/L (136-145) 05/28/21 K 4.5 mmol/L (3.5-5.1) 05/28/21 Cl 105 mmol/L (98-107) 05/28/21 CO2 20 mmol/L (21-32) L 05/28/21 Anion Gap 15 (3-11) H 05/28/21 BUN 40 mg/dl (6-23) H 05/28/21 Creatinine 1.75 mg/dl (0.6-1.4) H 05/28/21 BUN/Creatinine Ratio 22.9 (10-20) H 05/28/21 Glucose Level 163 mg/dl (70-99(Fasting)) H 05/28/21 Ca 9.1 mg/dl (8.5-10.1) 05/28/21 Total Bilirubin 1.0 mg/dl (0.2-1.0) 05/28/21 AST/SGOT 36 U/L (13-39) 05/28/21 ALT/SGPT 14 U/L (7-52) 05/28/21 Alkaline Phosphatase 75 U/L (34-104) 05/28/21 Total Protein 6.8 gm/dl (6.0-8.3) 05/28/21 Albumin 4.0 gm/dl (3.4-5.0) 05/28/21 Globulin 2.8 gm/dl (2.5-4.0) 05/28/21 Albumin/Globulin Ratio 1.4 (0.9-2) 05/28/21 Troponin I 12.17 ng/ml (0-0.04) H* 05/28/21 Procalcitonin < 0.05 ng/ml (0-0.5) 05/28/21 PTT 29.6 Seconds (21.0-31.0) 05/28/21 INR 1.2 (0.9-1.1) H 05/28/21 COVID-19 PCR NEGATIVE (Negative) 05/28/21 Influenza Virus Type A (PCR) Negative (Neg) 05/28/21 Influenza Virus Type B (PCR) Negative (Neg) 05/28/21 Chest X-Ray 05/28/21 Code Status & VTE Plan Code Status DNR/DNI VTE Prophylaxis Plan VTE Prophylaxis will be ordered: Yes Supervising Physician Co-Signing Physician Notes 86-year-old elderly male w/ PMH of T2DM diet-controlled, schizophrenia, HTN, HLD, history of colon cancer status post right hemicolectomy who presents to ED 05/28 secondary to abdominal pain and nausea and dry heaves x1 day.Pt has been constipated since 3-4 days per his sister. Pt not able to vocalize due to weakness/dry mouth. Pt is mouth breather per his sister. Pt has been reported eating ok until the evening prior to arrival. Pt noted to have pul edema, lactic acidosis, UTI, and severe sepsis POA. Troponin elevated, ekg reviewed. Cardio evaluated patient. Pt does have critical aortic stenosis. Also pt has SAKSHI over CKD. c/w ivf, trend lactate, trend trop. Appreciate cardio recs. Pt's sister wouldn't want any invasive treatment, wanted us to proceed with hospice at home at bedside exam. CM consulted. c/w antibiotic. Upon Exam: GENERAL: alert, can't vocalize, too weak to be able to cooperate, on 2L NC O2, appears very sick and ill. HEENT: No pallor, no icterus. Pupils equal, round and reactive to light. Oral mucosa dry. NECK: No JVD, no neck masses. HEART: S1 and S2 heard. Regular rate and rhythm. SEC at aortic area, no gallop. RESPIRATORY SYSTEM: Normal AP diameter. No accessory muscle use. No wheezing, b/b crackles. ABDOMEN: Soft, bowel sounds present, nontender, no distention. Scaphoid abdomen. CENTRAL NERVOUS SYSTEM: No facial droop. Speech is clear. Obeys simple commands. Moves extremities. EXTREMITIES: No edema, no erythema seen. I have seen and examined the patient and have discussed the case with the provider above. I agree with the assessment and plan as stated.
[2021-05-28] MEDS ORDERED: PROMETHAZINE HCL 12.5 MG in SODIUM CHLORIDE 0.9% 50 ML IV PRN (12:08)
[2021-05-28] MEDS ORDERED: DEXTROSE 50% 50 ML SYRINGE IV PRN (12:08)
[2021-05-28] MEDS ORDERED: CARBOHYDRATES FOR HYPOGLYCEMIA PO PRN (12:08)
[2021-05-28] MEDS ORDERED: POLYETHYLENE (MIRALAX) 17 GM PACK PO PRN (12:08)
[2021-05-28] MEDS ORDERED: GLUCOSE 40% GEL 15 GM TUBE PO PRN (12:08)
[2021-05-28] MEDS ORDERED: ALUMINUM/MAGNESIUM SUSP 30 ML UDC PO PRN (12:08)
[2021-05-28] MEDS ORDERED: bisacodyL 10 MG SUPP PR STA (12:08)
[2021-05-28] MEDS ORDERED: GLUCAGON FOR INJ 1 MG VIAL SQ PRN (12:08)
[2021-05-28] MEDS ORDERED: MAGNESIUM HYDROXIDE SUSP 30 ML UDC PO PRN (12:08)
[2021-05-28] MEDS ORDERED: PIPERACILL/TAZOBAC CONSULT ACTIVE PRN (12:08)
[2021-05-28] MEDS ORDERED: GLUCOSE 10 TABS/TUBE PO PRN (12:08)
[2021-05-28] MEDS ORDERED: ACETAMINOPHEN 325 MG TAB PO PRN (12:08)
[2021-05-28] MEDS ORDERED: PIPERACILLIN/TAZOBACTAM 3.375 GM in DEXTROSE 5% 100 ML IV ONE (13:00)
--- NOTE | 2021-05-28 13:25 | Cardiology Consultation ---
Date of Consultation May 28, 2021 Assessment & Plan (1) Elevated troponin: (2) Critical aortic valve stenosis: (3) Dilated cardiomyopathy: (4) Severe sepsis: (5) Acute renal injury: Patient is an 86-year-old male with medical issues and acute findings as noted. He has had at least 5 years duration of severe aortic stenosis by echocardiography. Overall clinical status been gradually declining over the past 1 years by description but presents now with acute decline over the past 2 weeks after of brother. Now with 2 to 3 days anorexia vomiting and nausea with abdominal pain and weight loss. Troponins are elevated and echocardiogram demonstrates dilated cardiomyopathy with critical aortic stenosis. Ischemic origin versus catecholamine mediated etiology not discerned. Imaging studies suggest at least mild congestive heart failure though exam not reflective of volume overload. Underlying sepsis not excluded Patient critically ill in the setting of a irreversible phenomena critical aortic stenosis with subsequent dilated cardiomyopathy now with hemodynamic compromise. I have discussed above findings in detail with sister. She notes he would not wish aggressive management and is "ready to go". She requests and I am in agreement with transition to comfort measures only. No further cardiac intervention History of Present Illness Reason for Consultation: Elevated troponin Requesting Physician: Dr. Allen Attending Physician: Amilcar Allen MD History of Present Illness Patient is an 86-year-old male with medical issues as outlined below. Acute findings are as follows 1. Critical aortic stenosis 2. Dilated cardiomyopathy with mild congestive heart failure 3. Elevated troponin 4. Acute on chronic renal insufficiency Patient unable to respond accurately to any questioning. Lethargic and not historically responsive. Information obtained from discussion with patient's sister who acts as caregiver. Patient has been essentially homebound for several months or longer even physician visits performed at home. Historically has had difficulties with increasing fatigue shortness of breath and declining exercise tolerance. She notes acute decline since news of the of his brother 2 weeks ago. Patient presented this morning with abdominal pain nausea and vomiting with poor p.o. intake for several days. No acute fevers or chills. Mental status has been declining. Sister has been aware of substantial weight loss over the past years time. No overt bleeding. Minimal pedal edema noted patient very sedentary at home Review of data reveals: Echocardiogram 2017 with severe aortic stenosis. Echocardiogram today with dilated cardiomyopathy and critical aortic stenosis Chest x-ray and CT abdomen reflect bilateral pleural effusions Allergies Allergy/AdvReac Type Severity Reaction Status Date / Time No Known Allergies Allergy Unknown NO Verified 05/28/21 07:58 Home Medications Medication Instructions Recorded Confirmed Type ferrous sulfate 325 mg (65 mg 325 mg PO QAM #0 10/15/08 05/28/21 History iron) tablet (iron) fluphenazine decanoate 25 mg/mL 25 mg IM MONTHLY #0 10/15/08 05/28/21 History injection solution paroxetine HCl 20 mg tablet 20 mg PO QAM #0 10/15/08 05/28/21 History aripiprazole 15 mg tablet (Abilify) 15 mg PO QAM #0 tab 08/29/13 05/28/21 History donepezil 5 mg tablet 5 mg PO HS #0 08/29/13 05/28/21 History atorvastatin 10 mg tablet 10 mg PO BID 01/05/18 05/28/21 History hydrochlorothiazide 12.5 mg capsule 12.5 mg PO QAM 01/05/18 05/28/21 History glycopyrrolate 1 mg tablet 1 mg PO BID 05/28/21 05/28/21 History lisinopril 40 mg tablet 40 mg PO QAM 05/28/21 05/28/21 History mirtazapine 15 mg tablet 7.5 mg PO HS 05/28/21 05/28/21 History sertraline 100 mg tablet 150 mg PO QAM 05/28/21 05/28/21 History valbenazine 40 mg capsule 40 mg PO QAM 05/28/21 05/28/21 History (Ingrezza) Patient History Medical History Acute kidney injury superimposed on CKD Colonic mass Colonic mass Colorectal cancer, stage III (~08/29/13) Hearing loss HLD (hyperlipidemia) HTN (hypertension) Laceration of scrotum Memory changes Schizophrenia T2DM (type 2 diabetes mellitus) Surgical History History of hemicolectomy Family History Mother , 89 CHF (congestive heart failure) Social History Smoking Status: Never smoker Second Hand Exposure: No; Do You Dip or Chew Tobacco: No; Tobacco Cessation Education Requested by Patient: No Hx Alcohol Use: No Hx Substance Use: No Preferred Language: Indian Communication Ability: Impaired Communication Ability Comment: hearing/dementia Visual Impairment: No Limitations Hearing Ability: Hard of Hearing Packaging Line Attendant Required: No Beliefs That Will Affect Care: None marital status: / Current Living Situation: Family Current Living Situation Comment: Alone with sisters help Other Information That Helps Us Care for You: No Feels Safe at Home: Yes Safety Concerns: Feels Safe At This Time Assistive Devices: Walker Review of Systems Review of Systems: Unobtainable due to cognitive status (Additional information obtained from patient's sister who acts as caregiver) Physical Exam Constitutional: + ill appearing and + cachectic; no acute distress Eyes: PERRL, conjunctivae normal, anicteric sclerae ENMT: external ear and nose normal, oropharynx normal Neck: trachea midline, no thyromegaly Respiratory: no labored breathing Cardiovascular: Rate/Rhythm: regular rate and regular rhythm Heart Sounds: + murmur (Grade 3/6 systolic murmur at the left sternal border, no) Vessels: no JVD Extremities: + edema (Trace to 1+) Gastrointestinal (Abdomen): Inspection/Auscultation: abdomen normal to inspection; abdomen not distended Skin: + turgor decreased Results & Data ([facility]) Vital Signs (Past 12 Hours) Vital Signs Temp Pulse Resp BP BP Pulse Ox Pulse Ox 05/28/21 12:08 36.7 C 16 99/65 L 92 92 05/28/21 11:00 92 H 20 93/63 L 89 L 05/28/21 10:30 91 H 19 99/69 L 89 L 05/28/21 10:00 95 H 24 104/69 92 05/28/21 09:30 95 H 20 95/65 L 93 05/28/21 09:00 92 H 21 90/65 L 93 05/28/21 08:30 93 H 20 99/63 L 92 05/28/21 08:00 93 H 23 93 05/28/21 07:42 95 H 22 103/67 87 L 05/28/21 07:35 94 H 24 05/28/21 07:13 92 H 14 106/69 92 05/28/21 06:47 94 H 22 91 05/28/21 06:38 36.6 C 92 H 20 99/68 L 92 Laboratory Results Laboratory Results - last 24 hr 05/28/21 05/28/21 05/28/21 06:46 06:46 06:46 WBC 16.97 H RBC 4.97 Hgb 14.6 Hct 43.8 MCV 88.1 MCH 29.4 MCHC 33.3 RDW Std Deviation 47.1 H RDW Coeff of Rose 14.7 H Plt Count 344 MPV 10.9 H Immature Gran % (Auto) 0.1 Neut % (Auto) 93.5 Lymph % (Auto) 2.1 [place] % (Auto) 4.2 Eos % (Auto) 0.1 Baso % (Auto) 0.0 Neut # (Auto) 15.86 H Lymph # (Auto) 0.36 L [place] # (Auto) 0.71 H Eos # (Auto) 0.02 Baso # (Auto) 0.00 Immature Gran # (Auto) 0.02 PT INR APTT PTT Ratio Sodium 140 Potassium 4.5 Chloride 105 Carbon Dioxide 20 L Anion Gap 15 H BUN 40 H Creatinine 1.75 H Est Cr Clr Drug Dosing Not Reportable Est GFR ( Amer) 40.5 Est GFR (Non-Af Amer) 35.0 BUN/Creatinine Ratio 22.9 H Glucose 163 H POC Glucose Lactate Calcium 9.1 Magnesium 2.2 Total Bilirubin 1.0 AST 36 ALT 14 Alkaline Phosphatase 75 Troponin I 3.54 H* B-Natriuretic Peptide Total Protein 6.8 Albumin 4.0 Globulin 2.8 Albumin/Globulin Ratio 1.4 Procalcitonin Cancelled Urine Color Urine Appearance Urine pH Ur Specific [place] Urine Protein Urine Glucose (UA) Urine Ketones Urine Blood Urine Nitrite Urine Bilirubin Urine Urobilinogen Ur Leukocyte Esterase Urine WBC (Auto) Urine RBC (Auto) U Hyaline Cast (Auto) U Epithel Cells (Auto) Urine Bacteria (Auto) Urine Yeast SARS-CoV-2 (PCR) Influenza Type A (PCR) Influenza Type B (PCR) RSV (RT-PCR) 05/28/21 05/28/21 05/28/21 06:46 06:46 07:43 WBC RBC Hgb Hct MCV MCH MCHC RDW Std Deviation RDW Coeff of Rose Plt Count MPV Immature Gran % (Auto) Neut % (Auto) Lymph % (Auto) [place] % (Auto) Eos % (Auto) Baso % (Auto) Neut # (Auto) Lymph # (Auto) [place] # (Auto) Eos # (Auto) Baso # (Auto) Immature Gran # (Auto) PT 12.3 H INR 1.2 H APTT 29.6 PTT Ratio 1.1 Sodium Potassium Chloride Carbon Dioxide Anion Gap BUN Creatinine Est Cr Clr Drug Dosing Est GFR ( Amer) Est GFR (Non-Af Amer) BUN/Creatinine Ratio Glucose POC Glucose Lactate 3.4 H* Calcium Magnesium Total Bilirubin AST ALT Alkaline Phosphatase Troponin I B-Natriuretic Peptide Total Protein Albumin Globulin Albumin/Globulin Ratio Procalcitonin Urine Color Dark Yellow Urine Appearance Clear Urine pH 5.0 Ur Specific [place] 1.020 Urine Protein Negative Urine Glucose (UA) Negative Urine Ketones Trace H Urine Blood Negative Urine Nitrite Positive A Urine Bilirubin Negative Urine Urobilinogen Negative Ur Leukocyte Esterase 1+ H Urine WBC (Auto) 1-5 Urine RBC (Auto) 0-4 U Hyaline Cast (Auto) 1-5 U Epithel Cells (Auto) 5-10 H Urine Bacteria (Auto) 1+ H Urine Yeast Not Reportable SARS-CoV-2 (PCR) Influenza Type A (PCR) Influenza Type B (PCR) RSV (RT-PCR) 05/28/21 05/28/21 05/28/21 07:44 07:47 08:33 WBC RBC Hgb Hct MCV MCH MCHC RDW Std Deviation RDW Coeff of Rose Plt Count MPV Immature Gran % (Auto) Neut % (Auto) Lymph % (Auto) [place] % (Auto) Eos % (Auto) Baso % (Auto) Neut # (Auto) Lymph # (Auto) [place] # (Auto) Eos # (Auto) Baso # (Auto) Immature Gran # (Auto) PT INR APTT PTT Ratio Sodium Potassium Chloride Carbon Dioxide Anion Gap BUN Creatinine Est Cr Clr Drug Dosing Est GFR ( Amer) Est GFR (Non-Af Amer) BUN/Creatinine Ratio Glucose POC Glucose Lactate 2.6 H* Calcium Magnesium Total Bilirubin AST ALT Alkaline Phosphatase Troponin I B-Natriuretic Peptide Total Protein Albumin Globulin Albumin/Globulin Ratio Procalcitonin < 0.05 Urine Color Urine Appearance Urine pH Ur Specific [place] Urine Protein Urine Glucose (UA) Urine Ketones Urine Blood Urine Nitrite Urine Bilirubin Urine Urobilinogen Ur Leukocyte Esterase Urine WBC (Auto) Urine RBC (Auto) U Hyaline Cast (Auto) U Epithel Cells (Auto) Urine Bacteria (Auto) Urine Yeast SARS-CoV-2 (PCR) NEGATIVE Influenza Type A (PCR) Negative Influenza Type B (PCR) Negative RSV (RT-PCR) Negative 05/28/21 05/28/21 05/28/21 09:55 12:10 12:23 WBC RBC Hgb Hct MCV MCH MCHC RDW Std Deviation RDW Coeff of Rose Plt Count MPV Immature Gran % (Auto) Neut % (Auto) Lymph % (Auto) [place] % (Auto) Eos % (Auto) Baso % (Auto) Neut # (Auto) Lymph # (Auto) [place] # (Auto) Eos # (Auto) Baso # (Auto) Immature Gran # (Auto) PT INR APTT PTT Ratio Sodium Potassium Chloride Carbon Dioxide Anion Gap BUN Creatinine Est Cr Clr Drug Dosing Est GFR ( Amer) Est GFR (Non-Af Amer) BUN/Creatinine Ratio Glucose POC Glucose 134 H Lactate Calcium Magnesium Total Bilirubin AST ALT Alkaline Phosphatase Troponin I 12.17 H* B-Natriuretic Peptide > 4700 H Total Protein Albumin Globulin Albumin/Globulin Ratio Procalcitonin Urine Color Urine Appearance Urine pH Ur Specific [place] Urine Protein Urine Glucose (UA) Urine Ketones Urine Blood Urine Nitrite Urine Bilirubin Urine Urobilinogen Ur Leukocyte Esterase Urine WBC (Auto) Urine RBC (Auto) U Hyaline Cast (Auto) U Epithel Cells (Auto) Urine Bacteria (Auto) Urine Yeast SARS-CoV-2 (PCR) Influenza Type A (PCR) Influenza Type B (PCR) RSV (RT-PCR) 05/28/21 12:23 WBC RBC Hgb Hct MCV MCH MCHC RDW Std Deviation RDW Coeff of Rose Plt Count MPV Immature Gran % (Auto) Neut % (Auto) Lymph % (Auto) [place] % (Auto) Eos % (Auto) Baso % (Auto) Neut # (Auto) Lymph # (Auto) [place] # (Auto) Eos # (Auto) Baso # (Auto) Immature Gran # (Auto) PT INR APTT PTT Ratio Sodium Potassium Chloride Carbon Dioxide Anion Gap BUN Creatinine Est Cr Clr Drug Dosing Est GFR ( Amer) Est GFR (Non-Af Amer) BUN/Creatinine Ratio Glucose POC Glucose Lactate 2.2 H* Calcium Magnesium Total Bilirubin AST ALT Alkaline Phosphatase Troponin I B-Natriuretic Peptide Total Protein Albumin Globulin Albumin/Globulin Ratio Procalcitonin Urine Color Urine Appearance Urine pH Ur Specific [place] Urine Protein Urine Glucose (UA) Urine Ketones Urine Blood Urine Nitrite Urine Bilirubin Urine Urobilinogen Ur Leukocyte Esterase Urine WBC (Auto) Urine RBC (Auto) U Hyaline Cast (Auto) U Epithel Cells (Auto) Urine Bacteria (Auto) Urine Yeast SARS-CoV-2 (PCR) Influenza Type A (PCR) Influenza Type B (PCR) RSV (RT-PCR)
[2021-05-28 15:08] VITALS: O2SAT 91
[2021-05-28] MEDS: HEPARIN SOD 5,000 UNIT/0.5 ML VIAL SQ SCH ×2 (15:14→21:16)
[2021-05-28] MEDS: INSULIN ASPART PER UNIT SC SCH ×2 (16:27→21:03)
[2021-05-28] MEDS ORDERED: PIPERACILLIN/TAZOBACTAM 3.375 GM in DEXTROSE 5% 100 ML IV SCH (18:00)
[2021-05-28 20:00] VITALS: BP 111/70; PULSE 89; TEMP 98.1
[2021-05-28] MEDS ORDERED: ACETAMINOPHEN 325 MG TAB PO STA (21:30)
[2021-05-28] MEDS ORDERED: LACTULOSE SYRUP 30 GM/45 ML UDP PO STA (21:30)
[2021-05-28] MEDS ORDERED: ACETAMINOPHEN 1,000 MG/100 ML VIAL IV STA (21:46)
--- NOTE | 2021-05-28 22:58 | Communication Note ---
Date of Service: May 28, 2021 Patient sister agreeable to transitioning patient to full comfort measures.
[2021-05-28] MEDS ORDERED: GLYCOPYRROLATE 0.2 MG/ML VIAL IV PRN (23:02)
[2021-05-28] MEDS ORDERED: LORazepam 2 MG/1 ML VIAL IV PRN (23:02)
[2021-05-28] MEDS ORDERED: MoRPHine SULFATE 4 MG/ML 1 ML CARP\\VIAL IV PRN (23:02)
--- NOTE | 2021-05-29 10:40 | Death Pronouncement Note ---
Date of Service May 29, 2021 Pronouncement Note Admission Date May 28, 2021 Date and Time of Date of : 05/29/21 Time of : 10:04 Preliminary Cause of (1) NSTEMI (non-ST elevated myocardial infarction): Contributing Factors Critical aortic valve stenosis HFrEF Severe Sepsis Summary See Discharge Summary on the same day. Additional Data Confirmation of : no pulse, no respirations, no heart sounds and pupils fixed and dilated Pronouncement Performed By: Attending Physician Family: at bedside Additional persons at bedside: other (RN for the patient) Attending physician: Amilcar Allen MD
--- NOTE | 2021-05-29 10:51 | Discharge Summary ---
Date of Service May 29, 2021 Admission HPI Per Admitting Provider This is a 86-year-old elderly male who has significant past medical history of T2DM diet-controlled, schizophrenia, HTN, HLD, history of colon cancer status post right hemicolectomy who presents to ED secondary to abdominal pain and nausea and vomiting x1 day. His sister is at bedside. He is a very poor historian. Sister does not provide significant history as well. Apparently patient's brother approximately 2 weeks ago and according to sister he has been becoming increasingly weak since. Typically he lives at home alone, but sister has been staying with him. He is usually ambulatory with a walker and otherwise pretty active. Over the past 2 days he has become increasingly weak, decreased appetite, complaining of lower abdominal discomfort nausea and spitting up clear mucus according to sister. He denies any fever, chills, sweats, lightheadedness, dizziness, chest pain, shortness of breath, cough, hematemesis, hemoptysis, melena or hematochezia. According to sister he has had difficulty moving bowels the last 2 days. In ED patient met sepsis criteria secondary to leukocytosis, tachycardia, lactic acidosis and evidence of UTI. He also had mild SAKSHI with creatinine 1.75 and elevated troponin at 3.54. CT abdomen pelvis revealed mild to moderate fecal impaction without evidence of obstruction. Also revealed moderate sized bilateral pleural effusions right greater than left with compressive atelectasis at right lung base. Small pericardial effusion was noted. Chest x-ray revealed moderate pulmonary edema. In ED he was started on gentle IV fluid and he also received 300 mg aspirin per rectum. Admission Exam Per Admitting Provider GENERAL: alert, can't vocalize, too weak to be able to cooperate, on 2L NC O2, appears very sick and ill. HEENT: No pallor, no icterus. Pupils equal, round and reactive to light. Oral mucosa dry. NECK: No JVD, no neck masses. HEART: S1 and S2 heard. Regular rate and rhythm. SEC at aortic area, no gallop. RESPIRATORY SYSTEM: Normal AP diameter. No accessory muscle use. No wheezing, b/b crackles. ABDOMEN: Soft, bowel sounds present, nontender, no distention. Scaphoid abdomen. CENTRAL NERVOUS SYSTEM: No facial droop. Speech is clear. Obeys simple commands. Moves extremities. EXTREMITIES: No edema, no erythema seen. Principal Diagnosis Severe Sepsis NSTEMI Critical Aortic Valve Stenosis HFrEF SAKSHI Discharge Exam Patient lying in bed, pupils fixed and dilated, nonresponsive to verbal stimuli/sternal rub. Absence heart sounds, no pulse noted Absent respiration, no breath sounds appreciated on auscultation. No corneal reflex Discharge Data Allergies Allergy/AdvReac Type Severity Reaction Status Date / Time No Known Allergies Allergy Unknown NO Verified 05/28/21 07:58 Consultations 05/28/21 09:08 ED Decision to Admit Stat 05/28/21 09:33 Consult Cardiology Routine Ordered Studies 05/28/21 06:49 CT abd pelvis wo con Stat Hospital Course (1) NSTEMI (non-ST elevated myocardial infarction): 86-year-old elderly male w/ PMH of T2DM diet-controlled, schizophrenia, HTN, HLD, history of colon cancer status post right hemicolectomy who presents to ED 05/28 secondary to abdominal pain and nausea and dry heaves x1 day.Pt has been constipated since 3-4 days per his sister. Pt not able to vocalize due to weakness/dry mouth. Pt is mouth breather per his sister. Sister transitioned the patient to full comfort measures 05/28 evening per Soft Hat Binder. He was managed for the following prior to transitioning to comfort measures: Severe sepsis UTI Generalized weakness Was on antibiotic and received iv fluids. likely NSTEMI Likely Acute on Chronic HFrEF Pulmonary edema Pt's sister didn't want any invasive management and was leaning towards comfort measures early on. Acute on chronic CKD stage III Fecal impaction Other chronic medical conditions: T2DM, diet controlled; HTN; schizophrenia; dementia Patient was transitioned to comfort care measures 05/28 evening. Patient 05/29/2021 at 10:04 a.m. Pronounced at bedside with his sister and RN present at bedside. Cause of : NSTEMI and severe sepsis on the background of critical aortic valve stenosis and acute on chronic heart failure with reduced ejection fraction. Total Time Total Time Spent Total Time Spent (In Minutes): 35 Discharge Plan Discharge Items Patient Disposition: Other Date/Time: 05/29/21 10:04
--- NOTE | 2021-05-29 12:38 | Electrocardiogram Report ---
Test Reason : Blood Pressure : / mmHG Vent. Rate : 092 BPM Atrial Rate : 092 BPM P-R Int : 288 ms QRS Dur : 170 ms QT Int : 400 ms P-R-T Axes : 000 -72 068 degrees QTc Int : 495 ms Poor data quality, interpretation may be adversely affected Sinus rhythm with 1st degree A-V block Right bundle branch block Left anterior fascicular block Bifascicular block Left ventricular hypertrophy with repolarization abnormality Cannot rule out Septal infarct , age undetermined Abnormal ECG When compared with ECG of 29-AUG-2013 10:42, Premature ventricular complexes are no longer Present T wave inversion now evident in Anterolateral leads QT has lengthened Confirmed by Damaso Barboza ([id number]) on 05/29/2021 12:38:17 PM Referred By: REFERRED SELF Confirmed By:Damaso Barboza
--- NOTE | 2021-05-29 12:51 | Electrocardiogram Report ---
Test Reason : Blood Pressure : / mmHG Vent. Rate : 095 BPM Atrial Rate : 095 BPM P-R Int : 224 ms QRS Dur : 186 ms QT Int : 402 ms P-R-T Axes : 000 -69 084 degrees QTc Int : 505 ms Sinus rhythm with 1st degree A-V block Left anterior fascicular block Right bundle branch block Left ventricular hypertrophy with repolarization abnormality Cannot rule out Septal infarct (cited on or before 28-MAY-2021) Abnormal ECG When compared with ECG of 28-MAY-2021 07:21, (unconfirmed) No significant change Confirmed by Damaso Barboza ([id number]) on 05/29/2021 12:50:55 PM Referred By: REFERRED SELF Confirmed By:Damaso Barboza
--- NOTE | 2021-05-29 12:58 | Electrocardiogram Report ---
Test Reason : Blood Pressure : / mmHG Vent. Rate : 092 BPM Atrial Rate : 092 BPM P-R Int : 256 ms QRS Dur : 182 ms QT Int : 496 ms P-R-T Axes : -68 -70 071 degrees QTc Int : 613 ms Sinus rhythm with 1st degree A-V block Left anterior fascicular block Right bundle branch block Moderate voltage criteria for LVH, may be normal variant Cannot rule out Septal infarct (cited on or before 28-MAY-2021) Abnormal ECG When compared with ECG of 28-MAY-2021 10:09, (unconfirmed) No significant change Confirmed by Damaso Barboza ([id number]) on 05/29/2021 12:58:12 PM Referred By: REFERRED SELF Confirmed By:Damaso Barboza
== END 2021-05-29 11:27 | disposition expired | DRG 871 ==
LOC: ED 06:29 → 2S 09:33 → 3W 05-29 01:00